=== PATIENT | female | born 1980 | race Hispanic/Latino ===

== ENCOUNTER 2017-09-09 13:16 | Emergency (ER) | payer MEDICAID ==
[2017-09-09 13:29] VITALS: RESP 16; TEMP 98.5; O2SAT 98
[2017-09-09] MEDS ORDERED: Sodium Chloride 0.9% 1,000 ML IV STA (13:39)
--- NOTE | 2017-09-09 13:48 | ED PDOC ---
HPI: Headache Time Seen by Provider: 09/09/17 13:30 Chief Complaint (Nursing): Headache Chief Complaint (Provider): Headache History Per: Patient History/Exam Limitations: no limitations Onset/Duration Of Symptoms: Days (x 2 weeks) Current Symptoms Are (Timing): Still Present Additional Complaint(s): Dejah is a 37 y/o female who presents to the ED complaining of a persistent headache for the past 2 weeks. States history of monthly headaches, usually associated with menstruation, which have become increasingly more frequent and constant over the past several weeks. Taking Advil with minimal relief, last dose was 5AM this morning. Headache is associated with dizziness/lightheadedness , sweats, chills, and generalized body aches. Denies fever, abdominal pain, nausea, vomiting, chest pain, and extremity weakness/numbness/tingling. No neck pain. Not worst headache of her life. PMD: Dr. Montilla Mayaguez Past Medical History Reviewed: Historical Data, Nursing Documentation, Vital Signs Vital Signs: Last Vital Signs Temp 98.5 F 09/09/17 13:24 Pulse 79 09/09/17 13:24 Resp 16 09/09/17 13:24 BP 110/68 09/09/17 13:24 Pulse Ox 98 09/09/17 13:24 - Medical History PMH: No Chronic Diseases Other PMH: low platelets; headaches - Surgical History Surgical History: No Surg Hx - Family History Family History: States: Unknown Family Hx - Living Arrangements Living Arrangements: With Family - Social History Current smoker - smoking cessation education provided: No Alcohol: None Drugs: Denies - Home Medications Home Medications: Ambulatory Orders Medication Instructions Recorded Ibuprofen [Motrin] 600 mg PO TID 7 Days tab 09/09/17 - Allergies Allergies/Adverse Reactions: Allergies Allergy/AdvReac Type Severity Reaction Status Date / Time No Known Allergies Allergy Verified 09/09/17 13:38 Review of Systems ROS Statement: Except As Marked, All Systems Reviewed And Found Negative Constitutional: Positive for: Chills, Sweats, Other (Body aches). Negative for : Fever Eyes: Negative for: Vision Change Cardiovascular: Negative for: Chest Pain Respiratory: Negative for: Cough, Shortness of Breath Gastrointestinal: Positive for: Diarrhea (last week, now resolved). Negative for: Nausea, Vomiting, Abdominal Pain Musculoskeletal: Negative for: Neck Pain, Arm Pain Neurological: Positive for: Headache, Dizziness. Negative for: Weakness, Numbness Physical Exam - Reviewed Nursing Documentation Reviewed: Yes Vital Signs Reviewed: Yes - Physical Exam Appears: Positive for: Non-toxic, No Acute Distress Head Exam: Positive for: ATRAUMATIC, NORMAL INSPECTION, NORMOCEPHALIC Skin: Positive for: Normal Color, Warm, Dry Eye Exam: Positive for: EOMI, Normal appearance, PERRL ENT: Negative for: Nasal Congestion, Pharyngeal Erythema Neck: Positive for: Normal (with mild tenderness to right lateral neck, full ROM ), Painless ROM, Supple Cardiovascular/Chest: Positive for: Regular Rate, Rhythm. Negative for: Murmur Respiratory: Positive for: Normal Breath Sounds. Negative for: Accessory Muscle Use, Respiratory Distress Pulses-Radial (L): 2+ Pulses-Radial (R): 2+ Gastrointestinal/Abdominal: Positive for: Normal Exam, Soft. Negative for: Tenderness Back: Positive for: Normal Inspection. Negative for: L CVA Tenderness, R CVA Tenderness, Vertebral Tenderness Extremity: Positive for: Normal ROM. Negative for: Tenderness, Pedal Edema, Deformity Neurologic/Psych: Positive for: Alert, flat surfacer II-XII (intact), Oriented (x3), Cerebellar Tests (normal). Negative for: Motor/Sensory Deficits, Other ( Brudzinskis sign, Kernigs sign) - Laboratory Results Result Diagrams: 09/09/17 13:50 09/09/17 13:50 Interpretation Of Abn Labs: 78 platelets - ECG O2 Sat by Pulse Oximetry: 98 (RA) Pulse Ox Interpretation: Normal - CT Scan/US head Other Rad Studies (CT/US): Read By Radiologist Other Rad Interpretation: no acute - Progress ED Course And Treament: 1538: Stable. AAOx3. Reading a book when entered room. State headache only slightly decreased. Pt. offered lumbar puncture for further evaluation for meningitis and bleeding. 1612: Stable. AAOx3. Has capacity to make decisions. Mother with pt. and agrees with pt. decisions. Pt. refuses lumbar puncture. States she will go home and see how she does. Will return if she does not feel well. Mother present to be with pt. Pt. is aware of possible or decreased functioning from missing a head bleed or meningitis and not getting tx for it. Pt. wants rx for motrin and neurologist to followup with. Medical Decision Making Medical Decision Making: Time: 13:39 Initial Plan: --Urine test --CMP --CBC --PTT --Prothrombin time --NS IV 1000 ml at 1000 mls/hr --Reglan 10 mg IV --Pending CT Head w/o contrast Scribe Attestation: Documented by Ange Wood, acting as a scribe for Jayme Corbin MD Provider Scribe Attestation: All medical record entries made by the Scribe were at my direction and personally dictated by me. I have reviewed the chart and agree that the record accurately reflects my personal performance of the history, physical exam, medical decision making, and the department course for this patient. I have also personally directed, reviewed, and agree with the discharge instructions and disposition. Disposition - Clinical Impression Clinical Impression: Headache - Patient ED Disposition Is Patient to be Admitted: No Counseled Patient/Family Regarding: Studies Performed, Diagnosis, Need For Followup - Disposition Referrals: [facility] [place] [Outside] - 09/10/17 Jono Nails MD [Staff Provider] - 09/10/17 [facility] [place] [Outside] Disposition: Routine/Home Disposition Time: 16:16 Condition: STABLE Additional Instructions: You are going against medical advice and not getting a lumbar puncture. You are aware of possible or decreased functioning from diagnosis like head bleed or meningitis which we could identify from a lumbar puncture and treat. Return soon as possible for further evaluation and treatment. Prescriptions: Ibuprofen [Motrin] 600 mg PO TID 7 Days tab Instructions: Acute Headache (ED) Forms: [facility] (Guatemalan)
[2017-09-09 14:14] LABS: ALB/GLOB RATIO 1.5 (1.0-2.1); ALKALINE PHOSPHATASE 66 U/L (38-126); ALT/SGPT 32 U/L (9-52); AST/SGOT 20 U/L (14-36); BILIRUBIN,TOTAL 0.6 mg/dl (0.2-1.3); BLOOD UREA NITROGEN 17 mg/dl (7-17); CALCIUM 8.8 mg/dL (8.4-10.2); CARBON DIOXIDE 24 mmol/L (22-30); CHLORIDE 105 mmol/L (98-107); GFR AFRICAN-AMERICAN > 60; GLUCOSE,RANDOM 105 mg/dL (65-105); POTASSIUM 3.7 MMOL/L (3.6-5.0); SODIUM 139 mmol/l (132-148); TOTAL PROTEIN 7.1 G/DL (6.3-8.2)
[2017-09-09 14:16] LABS: BASO % 0.9 % (0.0-2.0); EOS # 0.1 K/uL (0.0-0.7); EOS % 1.3 % (0.0-4.0); HEMATOCRIT 41.1 % (34.0-47.0); LYMPH # 1.2 K/uL (1.0-4.3); MEAN CELL VOLUME 87.2 fl (81.0-99.0); MEAN CORPUSCULAR HEMOGLOBIN 29.9 pg (27.0-31.0); MEAN CORPUSCULAR HGB CONC 34.3 g/dL (33.0-37.0); MEAN PLATELET VOLUME 8.9 fl (7.2-11.7); MONO # 0.6 K/uL (0.0-0.8); MONO % 13.1 % (0.0-10.0); NEUT # 2.8 K/uL (1.8-7.0); NEUT % 58.7 % (50.0-75.0); NRBC % 0.2 % (0.0-0.0); RED CELL DISTRIBUTION WIDTH 12.8 % (11.5-14.5); WHITE BLOOD COUNT 4.8 K/uL (4.8-10.8)
[2017-09-09 14:21] LABS: PARTIAL THROMBOPLASTIN TIME 32.7 Seconds (25.6-37.1)
--- NOTE | 2017-09-09 15:21 | CT ---
PROCEDURE: CT HEAD WITHOUT CONTRAST. HISTORY: headache COMPARISON: None available. TECHNIQUE: Axial computed tomography images were obtained through the head/brain without intravenous contrast. Radiation dose: Total exam DLP = 840 mGy-cm. This CT exam was performed using one or more of the following dose reduction techniques: Automated exposure control, adjustment of the mA and/or kV according to patient size, and/or use of iterative reconstruction technique. FINDINGS: HEMORRHAGE: No intracranial hemorrhage. BRAIN: No mass effect or edema. No atrophy or chronic microvascular ischemic changes. VENTRICLES: Unremarkable. No hydrocephalus. CALVARIUM: Unremarkable. PARANASAL SINUSES: Mild mucosal changes are seen in the sinuses. MASTOID AIR CELLS: Unremarkable as visualized. No inflammatory changes. OTHER FINDINGS: None. IMPRESSION: Unremarkable CT scan of the brain without contrast.
[2017-09-09] MEDS ORDERED: Acetaminophen-Codeine 300/30 mg Tab PO STA (16:07)
[2017-09-09] MEDS ORDERED: Acetaminophen-Codeine 300/30 mg Tab ONE (16:16)
[2017-09-09 16:43] VITALS: BP 101/64; PULSE 62
== END 2017-09-09 16:42 | disposition home or self-care (01) ==
LOC: H.ER 13:16
DX: R51 Headache (principal); R42 Dizziness and giddiness
CPT/HCPCS: 70450; 80053; 81025; 85025; 85610; 85730; 96360; 99284; J2765; J7040